=== PATIENT | female | born 1990 | race Caucasian/White ===

== ENCOUNTER 2016-08-08 05:01 | Emergency (ER) | payer MEDICAID ==
[~2016-08-08] VITALS: Ht 165.1 cm; Wt 81.2 kg
[~2016-08-08 05:01] MED LIST: BUTA1CAP60 PO; METO10TA2 PO; PNV91TAB3 PO
[2016-08-08 05:02] VITALS: BP 113/75
== END 2016-08-08 07:05 | disposition home or self-care (01) ==
LOC: ED 06:45
DX: J02.9 Acute pharyngitis, unspecified (principal); G43.909 Migraine, unspecified, not intractable, without status migrainosus
CPT/HCPCS: 87081; 87880; 99284

== ENCOUNTER 2016-11-13 14:02 | Emergency (ER) | payer MEDICAID ==
[~2016-11-13] VITALS: Ht 165.1 cm; Wt 74.0 kg
[2016-11-13] MEDS ORDERED: ACETAMINOPHEN 500 MG TABLET ONE (14:28)
[2016-11-13] MEDS ORDERED: ACETAMINOPHEN 500 MG TABLET PO ONE (14:30)
[2016-11-13] MEDS ORDERED: PLEASE ENTER HEIGHT AND WEIGHT MC SCH (14:30)
[2016-11-13 16:00] VITALS: BP 110/60
== END 2016-11-13 16:24 | disposition home or self-care (01) ==
LOC: ED 15:44
DX: O26.891 Other specified pregnancy related conditions, first trimester (principal); Z3A.08 8 weeks gestation of pregnancy; R10.84 Generalized abdominal pain
CPT/HCPCS: 36415; 76801; 84702; 99285

== ENCOUNTER 2016-11-22 15:18 | Emergency (ER) | payer MEDICAID ==
[~2016-11-22] VITALS: Ht 165.1 cm; Wt 73.0 kg
[2016-11-22 17:41] VITALS: BP 111/58
== END 2016-11-22 17:54 | disposition home or self-care (01) ==
LOC: ED 15:57
DX: O9A.211 Injury, poisoning and certain other consequences of external causes complicating pregnancy, first trimester (principal); Z3A.08 8 weeks gestation of pregnancy; O46.8X1 Other antepartum hemorrhage, first trimester; Z87.891 Personal history of nicotine dependence; Z88.2 Allergy status to sulfonamides; V43.62XA Car passenger injured in collision with other type car in traffic accident, initial encounter; Y93.89 Activity, other specified; Y92.39 Other specified sports and athletic area as the place of occurrence of the external cause; Y99.8 Other external cause status
CPT/HCPCS: 76801; 81003

== ENCOUNTER 2017-01-03 09:57 | Emergency (ER) | payer MEDICAID ==
[~2017-01-03] VITALS: Ht 165.1 cm; Wt 73.6 kg
[2017-01-03 10:59] LABS: HEMATOCRIT 40.3 % (34.6-47.8); HEMOGLOBIN 13.7 g/dL (11.7-16.4)
[2017-01-03 11:01] LABS: BLOOD UREA NITROGEN 5 mg/dL (7-18)
[2017-01-03 12:14] VITALS: BP 115/78
== END 2017-01-03 12:16 | disposition home or self-care (01) ==
LOC: ED 11:45
DX: O20.0 Threatened abortion (principal); Z3A.14 14 weeks gestation of pregnancy; G43.909 Migraine, unspecified, not intractable, without status migrainosus; Z88.1 Allergy status to other antibiotic agents
CPT/HCPCS: 36415; 76805; 80048; 81001; 82040; 84702; 85025; 87086; 99285

== ENCOUNTER 2017-01-31 01:02 | Emergency (ER) | payer MEDICAID ==
[~2017-01-31] VITALS: Ht 165.1 cm; Wt 71.6 kg
[2017-01-31 01:43] LABS: HEMATOCRIT 37.5 % (34.6-47.8); HEMOGLOBIN 12.6 g/dL (11.7-16.4); WHITE BLOOD COUNT 4.8 x10^3/uL (3.4-10)
[2017-01-31 01:53] LABS: BLOOD UREA NITROGEN 6 mg/dL (7-18)
[2017-01-31 02:33] VITALS: BP 102/53
== END 2017-01-31 04:08 | disposition left against medical advice (07) ==
LOC: ED 01:17
DX: O44.02 Complete placenta previa NOS or without hemorrhage, second trimester (principal); Z3A.18 18 weeks gestation of pregnancy; Z88.2 Allergy status to sulfonamides
CPT/HCPCS: 36415; 76805; 80048; 81001; 82040; 85025; 86901; 87086; 99285

== ENCOUNTER 2017-02-11 21:16 | Emergency (ER) | payer MEDICAID ==
[~2017-02-11] VITALS: Ht 165.1 cm; Wt 70.0 kg
[2017-02-11 21:16] VITALS: BP 109/70
[2017-02-11 22:10] LABS: HCG UR LOT HCG7030192
[2017-02-11 22:19] LABS: HCG UR OBC PASS
[2017-02-12 00:25] LABS: HEMATOCRIT 37.5 % (34.6-47.8); HEMOGLOBIN 12.9 g/dL (11.7-16.4); WHITE BLOOD COUNT 7.1 x10^3/uL (3.4-10)
[2017-02-12 00:39] LABS: ASPARTATE AMINO TRANSFERASE 22 U/L (15-37); BLOOD UREA NITROGEN 6 mg/dL (7-18)
== END 2017-02-12 02:47 | disposition home or self-care (01) ==
LOC: ED 23:32
DX: O26.892 Other specified pregnancy related conditions, second trimester (principal); O44.02 Complete placenta previa NOS or without hemorrhage, second trimester; O21.9 Vomiting of pregnancy, unspecified; R11.0 Nausea; Z3A.19 19 weeks gestation of pregnancy
CPT/HCPCS: 36415; 76805; 80048; 80076; 81003; 81025; 82040; 83690; 85025; 99285

== ENCOUNTER 2017-03-06 09:40 | Inpatient (IN) | payer MEDICAID ==
[~2017-03-06] VITALS: Ht 165.1 cm; Wt 71.8 kg
[2017-03-06 10:05] VITALS: BP 105/57
[2017-03-06] MEDS ORDERED: TERBUTALINE 1 MG/ML, 1ML IV ONE (10:30)
[2017-03-06] MEDS ORDERED: TERBUTALINE 1 MG/ML, 1ML ONE (10:35)
[2017-03-06] MEDS ORDERED: INDOMETHACIN 50 MG CAPSULE PO SCH (12:00)
[2017-03-06] MEDS ORDERED: LACTATED RINGERS 500 ML IVBOLUS ONE (12:00)
[2017-03-06 12:22] LABS: HEMATOCRIT 36.6 % (34.6-47.8); HEMOGLOBIN 12.6 g/dL (11.7-16.4); WHITE BLOOD COUNT 5.4 x10^3/uL (3.4-10)
[2017-03-06] MEDS: LACTATED RINGERS 1,000 ML IV SCH (13:02)
[2017-03-06] MEDS ORDERED: INDOMETHACIN 50 MG CAPSULE ONE (13:50)
[2017-03-06] MEDS ORDERED: ONDANSETRON 2MG/ML, 2ML ONE ×2 (15:34→21:51)
[2017-03-06] MEDS: ONDANSETRON 2MG/ML, 2ML IVPush PRN ×2 (15:37→22:03)
[2017-03-06] MEDS: INDOMETHACIN 25 MG CAPSULE PO SCH (22:06)
[2017-03-06 22:22] VITALS: BP 113/60
[2017-03-07] MEDS: LACTATED RINGERS 1,000 ML IV SCH ×4 (03:41→19:41)
[2017-03-07] MEDS ORDERED: ONDANSETRON 2MG/ML, 2ML ONE ×4 (03:46→19:59)
[2017-03-07] MEDS: INDOMETHACIN 25 MG CAPSULE PO SCH ×4 (03:54→20:03)
[2017-03-07] MEDS: ONDANSETRON 2MG/ML, 2ML IVPush PRN ×4 (03:54→20:03)
[2017-03-07] MEDS: niFEDipine ER 60 MG TABLET.ER PO SCH ×2 (08:40→09:00)
[2017-03-07] MEDS ORDERED: ACETAMINOPHEN 325 MG TABLET ONE (14:11)
[2017-03-07] MEDS ORDERED: ACETAMINOPHEN 325 MG TABLET PO PRN (14:30)
[2017-03-07 20:15] VITALS: BP 108/59
[2017-03-08] MEDS ORDERED: ONDANSETRON 2MG/ML, 2ML ONE ×2 (01:56→07:59)
[2017-03-08] MEDS ORDERED: INDOMETHACIN 50 MG CAPSULE ONE (01:56)
[2017-03-08] MEDS: INDOMETHACIN 25 MG CAPSULE PO SCH ×2 (02:02→08:03)
[2017-03-08] MEDS: ONDANSETRON 2MG/ML, 2ML IVPush PRN ×2 (02:03→08:04)
[2017-03-08] MEDS: niFEDipine ER 60 MG TABLET.ER PO SCH (09:04)
[2017-03-08 09:14] VITALS: BP 99/53
== END 2017-03-08 10:42 | disposition home or self-care (01) | DRG 782 ==
LOC: LDOP 09:40 → LDIP 11:54
PROVIDERS: ADMIT Obstetrics & Gynecology; ATTEND Obstetrics & Gynecology
DX: O45.92 Premature separation of placenta, unspecified, second trimester (principal); Z3A.23 23 weeks gestation of pregnancy
CPT/HCPCS: 36415; 76805; 81001; 85025; 86850; 86900; 87086; J2405; J7120; J3105

== ENCOUNTER 2017-04-15 08:28 | Outpatient (CLI) | payer MEDICAID ==
[~2017-04-15] VITALS: Ht 165.1 cm; Wt 76.8 kg
[2017-04-15 08:39] VITALS: BP 114/55
[2017-04-15] MEDS ORDERED: PREN1TAB10 PO (09:06)
[2017-04-15] MEDS ORDERED: NIFE60TA2 PO (09:07)
[2017-04-15] MEDS ORDERED: ONDA4TAB10 PO (09:08)
[2017-04-15 09:12] LABS: DAU SCREEN DISCLAIMER
== END 2017-04-15 10:00 | disposition home or self-care (01) ==
LOC: LDOP 08:28
PROVIDERS: ATTEND Obstetrics & Gynecology
DX: O36.8130 Decreased fetal movements, third trimester, not applicable or unspecified (principal); O36.5930 Maternal care for other known or suspected poor fetal growth, third trimester, not applicable or unspecified; Z3A.28 28 weeks gestation of pregnancy
CPT/HCPCS: 59025; 76819; 80307; 81003; 87086; 99211; G0463; G0479

== ENCOUNTER 2017-04-15 18:36 | Outpatient (CLI) | payer MEDICAID ==
[~2017-04-15 18:36] MED LIST changes: +NIFE60TA2 PO; +ONDA4TAB10 PO; +PREN1TAB10 PO
[2017-04-15 19:51] LABS: HEMATOCRIT 34.8 % (34.6-47.8); HEMOGLOBIN 11.9 g/dL (11.7-16.4)
[2017-04-15 20:06] LABS: DAU SCREEN DISCLAIMER
== END 2017-04-15 21:20 | disposition home or self-care (01) ==
LOC: LDOP 18:36
PROVIDERS: ATTEND Obstetrics & Gynecology
DX: O46.93 Antepartum hemorrhage, unspecified, third trimester (principal); O36.8130 Decreased fetal movements, third trimester, not applicable or unspecified; O62.9 Abnormality of forces of labor, unspecified; O60.03 Preterm labor without delivery, third trimester; Z3A.28 28 weeks gestation of pregnancy
CPT/HCPCS: 36415; 59025; 80307; 85025; 86850; 86900; 99211; G0463; G0479

== ENCOUNTER 2017-04-19 14:14 | Outpatient (CLI) | payer MEDICAID ==
[~2017-04-19] VITALS: Ht 165.1 cm; Wt 75.9 kg
[2017-04-19 14:21] VITALS: BP 115/57
[2017-04-19] MEDS ORDERED: ROPIvacaine/PF 0.5%, 20 ML ONE (15:46)
[2017-04-19] MEDS ORDERED: BACITRACIN 50,000 UNIT ONE (15:46)
[2017-04-19] MEDS ORDERED: CEFAZOLIN 1,000 MG ONE (15:46)
[2017-04-19] MEDS ORDERED: GENTAMICIN 80 MG/2 ML ONE (15:46)
== END 2017-04-19 17:30 | disposition home or self-care (01) ==
LOC: LDOP 14:14
PROVIDERS: ATTEND Obstetrics & Gynecology
DX: O60.03 Preterm labor without delivery, third trimester (principal); O36.5930 Maternal care for other known or suspected poor fetal growth, third trimester, not applicable or unspecified; O26.893 Other specified pregnancy related conditions, third trimester; R10.9 Unspecified abdominal pain; Z3A.29 29 weeks gestation of pregnancy
CPT/HCPCS: 59025; 81003; 99211; J0690; J1580; J2795; G0463

== ENCOUNTER 2017-06-14 11:55 | Outpatient (CLI) | payer SELFPAY ==
[~2017-06-14] VITALS: Ht 165.1 cm; Wt 80.5 kg
[2017-06-14 12:13] VITALS: BP 116/80
== END 2017-06-14 13:25 | disposition home or self-care (01) ==
LOC: LDOP 11:55
PROVIDERS: ATTEND Obstetrics & Gynecology
DX: O36.5930 Maternal care for other known or suspected poor fetal growth, third trimester, not applicable or unspecified (principal); Z3A.37 37 weeks gestation of pregnancy
CPT/HCPCS: 59025; 76819; 99211; G0463

== ENCOUNTER 2017-06-27 07:19 | Inpatient (IN) | payer MEDICAID ==
[~2017-06-27] VITALS: Ht 165.1 cm; Wt 76.8 kg
[2017-06-27] MEDS ORDERED: LACTATED RINGERS 1,000 ML IV SCH (07:43)
[2017-06-27] MEDS ORDERED: OXYTOCIN 30U/ 0.9% NaCL 500ML 500 ML IV SCH (07:43)
[2017-06-27] MEDS ORDERED: NEWBORN KIT ONE (07:47)
[2017-06-27] MEDS ORDERED: PLEASE ENTER HEIGHT AND WEIGHT MC SCH (08:00)
[2017-06-27] MEDS ORDERED: LACTATED RINGERS 1,000 ML IVBOLUS ONE (08:00)
[2017-06-27 08:22] LABS: BASOPHILS # (AUTO) 0.03 x10^3/uL (0-0.1); BASOPHILS % (AUTO) 1 % (0-1); EOSINOPHILS # (AUTO) 0.04 x10^3/uL (0-0.4); EOSINOPHILS % (AUTO) 1 % (1-7); LYMPHOCYTES # (AUTO) 1.23 x10^3/uL (1-3.4); LYMPHOCYTES % (AUTO) 21 % (22-44); MD NO; MEAN CORPUSCULAR HEMOGLOBIN 32.8 pg (27.0-34.8); MEAN CORPUSCULAR HGB CONC 34.2 g/dL (32.4-35.8); MEAN CORPUSCULAR VOLUME 95.9 fL (80-100); MEAN PLATELET VOLUME 8.7 fL (7.4-10.4); MONOCYTES % (AUTO) 9 % (2-9); NEUTROPHILS # (AUTO) 4.08 x10^3/uL (1.8-6.8); NEUTROPHILS % (AUTO) 69 % (42-75); PLATELET COUNT 179 x10^3/uL (130-400); RED BLOOD COUNT 3.91 x10^6/uL (3.82-5.3); RED CELL DISTRIBUTION WIDTH 12.8 % (9.6-15.2)
[2017-06-27 08:35] VITALS: BP 117/78
[2017-06-27 08:40] LABS: AMPHETAMINE SCREEN, URINE Negative (Negative); BARBITURATE SCREEN, URINE Negative (Negative); BENZODIAZEPINE SCREEN, URINE Negative (Negative); CANNABINOID SCREEN, URINE Positive (Negative); COCAINE SCREEN, URINE Negative (Negative); METHADONE SCREEN, URINE Negative (Negative); OPIATE SCREEN, URINE Negative (Negative)
[2017-06-27] MEDS ORDERED: SODIUM CITRATE/CITRIC ACID 30 ML UDC ONE (09:10)
[2017-06-27] MEDS ORDERED: OXYTOCIN 30U/ 0.9% NaCL 500ML 500 ML ONE (09:11)
[2017-06-27] MEDS ORDERED: METOCLOPRAMIDE 5 MG/ML, 2ML ONE (09:11)
[2017-06-27] MEDS ORDERED: ONDANSETRON 2MG/ML, 2ML ONE (09:20)
[2017-06-27] MEDS ORDERED: CEFAZOLIN 1,000 MG ONE (09:20)
[2017-06-27] MEDS ORDERED: OXYTOCIN 10 UNITS/ML, 1ML ONE (09:20)
[2017-06-27] MEDS ORDERED: HYDROmorphone 2 MG/ML, 1ML ONE (09:20)
[2017-06-27] MEDS ORDERED: FENTANYL PF 100 MCG/2ML ONE (09:20)
[2017-06-27] MEDS ORDERED: METOCLOPRAMIDE 5 MG/ML, 2ML IVPush ONE (10:00)
[2017-06-27] MEDS ORDERED: SODIUM CITRATE/CITRIC ACID 30 ML UDC PO ONE (10:00)
[2017-06-27] MEDS ORDERED: PROPOFOL 10 MG/ML, 20ML ONE (10:16)
[2017-06-27] MEDS ORDERED: MEPERIDINE/PF 50 MG/ML ONE ×2 (10:59→18:16)
[2017-06-27] MEDS: LACTATED RINGERS 1,000 ML IV SCH ×4 (11:05→21:05)
[2017-06-27] MEDS ORDERED: ACETAMINOPHEN 325 MG TABLET PO PRN (11:30)
[2017-06-27] MEDS ORDERED: MISOPROSTOL 200 MCG TABLET PR PRN (11:30)
[2017-06-27] MEDS ORDERED: OXYcodone/APAP 5/325MG TABLET PO PRN (11:30)
[2017-06-27] MEDS ORDERED: METHYLERGONOVINE 0.2 MG/ML IM PRN (11:30)
[2017-06-27] MEDS ORDERED: MEPERIDINE/PF 100 MG/ML IVPush PRN (11:30)
[2017-06-27] MEDS ORDERED: ONDANSETRON 2MG/ML, 2ML IV PRN (11:30)
[2017-06-27] MEDS ORDERED: OXYcodone/APAP 5/325MG TABLET ONE (11:56)
[2017-06-27] MEDS: OXYcodone/APAP 5/325MG TABLET PO PRN ×2 (11:57→16:11)
[2017-06-27] MEDS: OXYTOCIN 30U/ 0.9% NaCL 500ML 500 ML IV SCH ×2 (12:00→21:05)
[2017-06-27] MEDS ORDERED: KETOROLAC 30 MG/1 ML ONE (12:57)
[2017-06-27] MEDS: KETOROLAC 30 MG/1 ML IV SCH ×3 (13:04→22:58)
[2017-06-27 13:15] VITALS: BP 128/82
[2017-06-27] MEDS: MEPERIDINE/PF 50 MG/ML IVPush PRN ×2 (13:34→13:52)
[2017-06-27] MEDS ORDERED: MEPERIDINE/PF 50 MG/ML IM PRN (14:30)
[2017-06-27] MEDS ORDERED: MEPERIDINE/PF 100 MG/ML IM PRN (14:30)
[2017-06-27 18:22] LABS: BASOPHILS # (AUTO) 0.02 x10^3/uL (0-0.1); BASOPHILS % (AUTO) 0 % (0-1); EOSINOPHILS # (AUTO) 0.06 x10^3/uL (0-0.4); EOSINOPHILS % (AUTO) 1 % (1-7); LYMPHOCYTES % (AUTO) 17 % (22-44); MD NO; MEAN CORPUSCULAR HEMOGLOBIN 33.2 pg (27.0-34.8); MEAN CORPUSCULAR HGB CONC 34.1 g/dL (32.4-35.8); MEAN CORPUSCULAR VOLUME 97.2 fL (80-100); MEAN PLATELET VOLUME 8.6 fL (7.4-10.4); MONOCYTES # (AUTO) 0.42 x10^3/uL (0.2-0.8); MONOCYTES % (AUTO) 7 % (2-9); NEUTROPHILS # (AUTO) 4.85 x10^3/uL (1.8-6.8); NEUTROPHILS % (AUTO) 75 % (42-75); PLATELET COUNT 148 x10^3/uL (130-400); RED BLOOD COUNT 3.18 x10^6/uL (3.82-5.3); RED CELL DISTRIBUTION WIDTH 12.7 % (9.6-15.2)
[2017-06-27 20:41] VITALS: BP 104/65
[2017-06-28 00:05] VITALS: BP 99/57
[2017-06-28] MEDS: LACTATED RINGERS 1,000 ML IV SCH ×2 (03:05→07:05)
[2017-06-28 04:50] VITALS: BP 114/70
[2017-06-28] MEDS: KETOROLAC 30 MG/1 ML IV SCH ×4 (04:59→11:27)
[2017-06-28] MEDS: OXYTOCIN 30U/ 0.9% NaCL 500ML 500 ML IV SCH (07:05)
[2017-06-28 07:20] VITALS: BP 110/61
[2017-06-28] MEDS: DOCUSATE 100 MG CAPSULE PO PRN ×2 (08:34→23:34)
[2017-06-28] MEDS: PRENATAL VIT/IRON/FA 1 EACH TABLET PO SCH (08:34)
[2017-06-28] MEDS ORDERED: IBUPROFEN 600 MG TABLET ONE (11:29)
[2017-06-28] MEDS: IBUPROFEN 600 MG TABLET PO PRN ×2 (17:21→23:34)
[2017-06-28 19:45] VITALS: BP 122/69
[2017-06-29] MEDS: IBUPROFEN 600 MG TABLET PO PRN (06:19)
[2017-06-29 07:15] VITALS: BP 118/69
[2017-06-29] MEDS: PRENATAL VIT/IRON/FA 1 EACH TABLET PO SCH (08:49)
[2017-06-29] MEDS ORDERED: IBUP-1222 PO (11:13)
[2017-06-29] MEDS ORDERED: OXYC-302 PO (11:13)
[2017-06-29] MEDS ORDERED: IBUPROFEN 600 MG TABLET PO PRN (12:00)
== END 2017-06-29 12:10 | disposition home or self-care (01) | DRG 765 ==
LOC: LDIP 07:19 → 2NW 13:18
PROVIDERS: ADMIT Obstetrics & Gynecology; ATTEND Obstetrics & Gynecology
PROC: 0UB70ZZ Excision of Bilateral Fallopian Tubes, Open Approach (ICD-10-PCS; principal; 2017-06-27)
PROC: 10D00Z1 Extraction of Products of Conception, Low, Open Approach (ICD-10-PCS; 2017-06-27)
DX: O34.211 Maternal care for low transverse scar from previous cesarean delivery (principal); O99.42 Diseases of the circulatory system complicating childbirth; I07.1 Rheumatic tricuspid insufficiency; O36.5930 Maternal care for other known or suspected poor fetal growth, third trimester, not applicable or unspecified; O99.52 Diseases of the respiratory system complicating childbirth; J45.909 Unspecified asthma, uncomplicated; Z37.0 Single live birth; Z30.2 Encounter for sterilization; Z3A.39 39 weeks gestation of pregnancy; Z88.2 Allergy status to sulfonamides; Z88.8 Allergy status to other drugs, medicaments and biological substances; Z91.013 Allergy to seafood
CPT/HCPCS: 36415; 80307; 82803; 85025; 86850; 86900; 88302; J0690; J1170; J1885; J2175; J2405; J2704; J3010; J2590; J2765; J7120

== ENCOUNTER 2021-01-09 12:20 | Emergency (ER) | payer MEDICAID, OTHER ==
[~2021-01-09] VITALS: Ht 165.1 cm; Wt 55.0 kg
[~2021-01-09 12:20] MED LIST changes: +IBUP-1222 PO; +OXYC1TAB12 PO
[2021-01-09] MEDS ORDERED: ONDANSETRON ODT 4 MG ONE (13:19)
[2021-01-09] MEDS ORDERED: ONDANSETRON ODT 4 MG PO ONE (13:30)
[2021-01-09 15:58] VITALS: BP 105/68
[2021-01-09 16:18] LABS: BASOPHILS % (AUTO) 0 % (0-1); EOSINOPHILS % (AUTO) 0 % (1-7); LYMPHOCYTES % (AUTO) 9 % (22-44); MEAN CORPUSCULAR HEMOGLOBIN 26.7 pg (27.0-34.8); MEAN CORPUSCULAR HGB CONC 32.7 g/dL (32.4-35.8); MEAN PLATELET VOLUME 9.1 fL (7.4-10.4); MONOCYTES % (AUTO) 6 % (2-9); NEUTROPHILS % (AUTO) 85 % (42-75); PLATELET COUNT 247 x10^3/uL (130-400); RED BLOOD COUNT 4.67 x10^6/uL (3.82-5.3); RED CELL DISTRIBUTION WIDTH 14.7 % (9.6-15.2)
[2021-01-09 16:24] LABS: ALBUMIN 3.4 g/dL (3.4-5.0); ANION GAP 8 mmol/L (5-15); CALCIUM 9.8 mg/dL (8.5-10.1); CHLORIDE 108 mmol/L (98-107)
[2021-01-09 16:45] LABS: ALANINE AMINOTRANSFERASE 32 U/L (12-78); ALKALINE PHOSPHATASE 101 U/L (45-117); BILIRUBIN,TOTAL 0.5 mg/dL (0.2-1.0); CREATININE 0.47 mg/dL (0.55-1.02); TOTAL PROTEIN 7.7 g/dL (6.4-8.2)
--- NOTE | 2021-01-09 17:20 | NUR ---
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
--- NOTE | 2021-01-09 19:12 | NUR ---
NA X 2
--- NOTE | 2021-01-09 19:38 | NUR ---
NA X 3
== END 2021-01-09 19:40 | disposition left against medical advice (07) ==
LOC: ED 13:00
DX: R11.2 Nausea with vomiting, unspecified (principal); R19.7 Diarrhea, unspecified; R10.84 Generalized abdominal pain
CPT/HCPCS: 36415; 80053; 83690; 84703; 85025; 99283; Q0162